=== PATIENT | male | born 1990 | race Caucasian/White ===

== ENCOUNTER 2017-09-17 16:10 | Emergency (ER) | payer SELFPAY ==
[~2017-09-17] VITALS: Ht 180.3 cm; Wt 72.6 kg
[2017-09-17 16:19] VITALS: BP 136/71; Ht 180.3 cm; Wt 72.6 kg
== END 2017-09-17 16:47 | disposition home or self-care (01) ==
LOC: ED 16:10
DX: S01.21XA Laceration without foreign body of nose, initial encounter (principal); X58.XXXA Exposure to other specified factors, initial encounter; Y93.89 Activity, other specified; Y92.89 Other specified places as the place of occurrence of the external cause; Y99.8 Other external cause status

== ENCOUNTER 2018-01-11 15:06 | Emergency (ER) | payer OTHER | END 2018-01-11 15:33 | disposition other institution (70) | LOC: ED 15:06 | DX: Z02.89 Encounter for other administrative examinations (principal) ==

== ENCOUNTER 2018-01-11 15:06 | Emergency (ER) | payer SELFPAY ==
[~2018-01-11] VITALS: Ht 180.3 cm; Wt 72.6 kg
[2018-01-11 15:11] VITALS: Ht 180.3 cm; Wt 72.6 kg
[2018-01-11 15:33] VITALS: BP 115/58
== END 2018-01-11 15:33 | disposition short-term general hospital (02) ==
LOC: ED 15:06
DX: S21.111A Laceration without foreign body of right front wall of thorax without penetration into thoracic cavity, initial encounter (principal); R06.02 Shortness of breath; W26.0XXA Contact with knife, initial encounter; Y93.89 Activity, other specified; Y92.89 Other specified places as the place of occurrence of the external cause; Y99.8 Other external cause status
CPT/HCPCS: J7030; Q0092

== ENCOUNTER 2020-09-13 15:44 | Emergency (ER) | payer OTHER ==
[~2020-09-13] VITALS: Ht 180.3 cm; Wt 72.6 kg
[2020-09-13 15:48] VITALS: Ht 180.3 cm; Wt 72.6 kg
[2020-09-13 16:21] VITALS: BP 150/66
== END 2020-09-13 16:21 | disposition left against medical advice (07) ==
LOC: ED 15:44
DX: F10.129 Alcohol abuse with intoxication, unspecified (principal); Y90.9 Presence of alcohol in blood, level not specified